=== PATIENT | male | born 1985 | race Caucasian/White ===

== ENCOUNTER → 2016-12-25 | Outpatient (CLI) | payer BC ==
[2016-12-25 12:20] LABS: BASOPHILS % (AUTO) 0 % (0-2); EOSINOPHILS % (AUTO) 1 % (0-4); LYMPHOCYTES # (AUTO) 1.5 X10^3; MEAN CORPUSCULAR HEMOGLOBIN 30.1 PG (26.0-34.0); MEAN CORPUSCULAR VOLUME 85 FL (80-100); MEAN PLATELET VOLUME 9.4 FL (6.0-9.5); MONOCYTES # (AUTO) 0.5 X10^3; MONOCYTES % (AUTO) 8 % (3-11); NEUTROPHILS # (AUTO) 4.3 X10^3; NEUTROPHILS % (AUTO) 68 % (51-67); PLATELET COUNT 259 10^3uL (150-450); WHITE BLOOD COUNT 6.32 10^3uL (4.0-11.0)
[2016-12-25 12:23] LABS: MEAN CORPUSCULAR HGB CONC 35.5 g/dL (31.0-37.0)
[2016-12-25 12:29] LABS: BILIRUBIN,URINE Negative (Negative); CLARITY,URINE Clear; COLOR,URINE Yellow; GLUCOSE, URINE (UA) Negative (Negative); LEUKOCYTE ESTERASE ,URINE Negative (Negative); UROBILINOGEN,URINE 0.2 mg/dL (0.2-1.0)
[2016-12-25 12:44] LABS: ALBUMIN 4.7 g/dL (3.4-5.0); ANION GAP 16.1 MEQ/L (3-15); CALCULATED IONIZED CALCIUM 3.9 mg/dL (3.8-4.6); TOTAL PROTEIN 7.6 g/dL (6.4-8.5)
[2016-12-25 13:01] LABS: ERYTHROCYTE SEDIMENTATION RT* 3 mm/hr (0-12)
== END ==
LOC: LAB 11:50
PROVIDERS: ATTEND Family Medicine
DX: M62.82 Rhabdomyolysis (principal)
CPT/HCPCS: 36415; 80053; 81003; 82550; 85025; 85652

== ENCOUNTER 2017-02-20 16:00 | Outpatient (RCR) | payer BC ==
--- NOTE | 2017-02-11 13:14 | PT/OT/ST INITIAL EVALUATION ---
Department of Health and Human Services Form Approved Health Care Financing Administration OMB No. [id number] PLAN OF CARE/ASSESSMENT FOR OUTPATIENT REHABILITATION (Complete for Initial Claims Only) 1. PATIENT'S NAME Mazin Wolff 2. ACC # [id number] 3. HICN NA 4. PROVIDER NO. NA 5. TYPE: PT 6. PRIOR HOSPITALIZATION NA 7. PRIMARY DX G54.1 lumbosacral plexus disorder and left hip pain. 8. SECONDARY DX Leg length discrepancy due to pelvic asymmetry, stiffness of the lumbar spine and weakness. 9. ONSET DATE 01/22/2017 10. REFERRAL DATE 01/31/2017 11. SOC. DATE 02/06/2017 12. TIME OF EVAL 4:00 p.m. to 4:58 p[address]YS[address]IAN Dr. Ino Mcdonough 13. CHARGES/UNITS PT evaluation low complexity 83649 Therapeutic exercise 07941, 2 units Manual therapy 86919, 1 unit 14. G CODES NA 15. PRIOR LEVEL OF FUNCTION; PERTINENT HISTORY (Prior therapy results, reason for referral.) S: Prior to therapy the patient consented to today's evaluation and treatment. The patient is a 31-year-old male referred to physical therapy by Dr. Mcdonough to address functional limitations secondary to lumbosacral plexus disorder and left hip pain. Current complaint/Mechanism of injury: The patient reports the pain began a couple of weeks ago on 01/22/2017 he was bending and turning and he had pain in his back, which has since stopped hurting him and now the pain is in his left hip. The patient reports that he has trouble with bending forward. Functional performance/Prior level of function: Prior to pain beginning on 01/22/2017, the patient reports that he frequently throws his back out, probably once a month, and he does stretches and works through it and is able to return to normal activities without any problems. This time, the pain has not resolved. The Lower Extremity Functional Scale rates the patient as a 51. The patient has difficulty with bending forward. 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 Therapy History: None. Pain level: The patient rates the current pain level as 6/10 and describes it as a sharp pain when moving, in his left anterior and posterior hip. Obstacles to delivery of care: None noted Aggravating factors: Includes sitting and lifting heavy objects. Relieving factors: Include standing and moving around. Diagnostic testing: None Past medical history: None. Past surgical history: Includes having a laceration with a nicked artery on his left arm approximately 5 years ago and breaking his left 5th finger, which required pins and then a hernia repair as a small child. Current medications: Advil and ibuprofen a couple times a day. The patient reports his doctor prescribed him a pain medication, antiinflammatory and muscle relaxer which he took for about a week and has not taken since. Leisure activities include: Mowing and working around his home. The patient has 4 children. Personal health rating: Listed as good. Patient's Goal: The patient's goal for physical therapy is to strengthen has back and his hip. 16. INITIAL ASSESSMENT/SAFETY PRECAUTIONS/MEDICAL COMPLICATIONS (Level of function at start of care. Be specific, use objective measures, list problems.) O: APPEARANCE, OBSERVATION AND GAIT: The patient attends physical therapy with the diagnosis of lumbosacral plexus disorder and left hip pain. The patient reports that he pulls his back and it hurts approximately once every couple of months. The patient reports that he had not had any bowel or bladder changes and no saddle anesthesia. The patient has no pain down into either lower extremity. The patient's injury began with back pain, which he states he has a home E-stim unit and he applies that to his back. At one time he applied it to his hip and his back pain went away, however, then the pain mostly located in his left hip and he states he feels tight. The patient has difficulty with active range of motion, especially into flexion. The patient describes at times having to use altered motions to get from a bent forward position to an upright position using aberrant movements. The patient's hamstrings bilaterally are extremely tight and are unable to fully extend either knee with a long arc quad. PALPATION: The patient was tender to palpate on the anterior ASIS on the left and the left PSIS. SPECIAL TESTS: Slump test bilaterally was positive for muscle tightness. The pain did not go away with relaxing stretch to the neural system. RANGE OF MOTION/FLEXIBILITY: Bilateral hamstring flexibility is significantly tight and unable to perform and long arc quad due to tightness. Lumbar active range of motion flexion 25% with aberrant movement returning to an upright posture. Extension 100%. Right side bending 85% with pull, left side bending 90%. Right rotation 80%, left rotation 80% and is sore. Hip active range of motion left and right flexion painful. Bilateral abduction within functional limits and bilateral extension within functional limits. STRENGTH: Manual muscle testing of the hips flexion left 4-/5 with pain, right 4-/5 with pain. Abduction bilateral 4-/5, extension bilateral 4-/5. Knee flexion left 4/5, right 4/5. Knee extension left and right did not perform manual resistance due to not being able to reach full extension with long arc quad. Upon observation the patient is a 3-/5 bilateral. Plantar flexion bilateral 4-/5, dorsiflexion bilateral 4-/5. TODAY'S TREATMENT: Today's treatment included the initial PT evaluation followed by manual therapy correcting left anterior versus right posterior innominate rotation, left inflare versus right outflare and the left sacrum was elevated. After correcting the left elevated sacrum it corrected leg length discrepancy. Therapeutic exercise and the patient was provided a home exercise program. 17. INITIAL POC: (Specify procedures, modalities, short and termite control service representative goals) A: The patient presents to physical therapy with the diagnosis of lumbosacral plexus disorders and left hip pain. The patient shows a leg length discrepancy due to sacral deviation and elevation with pelvic rotation, lumbar stiffness and weakness with altered motions moving into all planes of lumbar movement. The patient presented with a right posterior versus a left anterior rotated innominate, left inflare versus right outflare and an elevated left sacrum. With passive accessory motion in a side-lying position, the patient's lumbar extension was within functional limits. Flexion was significantly limited through all lumbar vertebrae. Left side bending and rotation was decreased as compared to the right side bending and rotation. The patient would benefit from physical therapy in order to restore proper mechanics and proper accessory motion of the lumbar vertebrae in order to perform lumbar range of motion, especially into flexion and returning to an upright position with minimal to no deviation in order to return to all his activities with lowered risk of reinjuring his back to strengthen core in order to maintain pelvic asymmetry. PROGNOSIS: The patient has a good prognosis for increased active range of motion with decreased pain with regular therapy attendance and compliance with a prescribed home exercise program. CONTRAINDICATIONS, PRECAUTIONS AND OBSTACLES TO DELIVERY OF CARE: No contraindications, precautions, or obstacles are noted at this time. INFORMED CONSENT: The prognosis and goals were discussed with the patient, as well as the expected outcome and possible risks. The patient agreed to undergo PT evaluation and further treatment. SHORT TERM GOALS: 1. The patient is to have a decreased in pain of the left hip to less than or equal to 1/10 in 4 weeks in order to be able to bend forward and lift without deviation. 2. The patient is to have an increase in manual muscle testing of bilateral hips and core to 4+/5 in 4 weeks in order to assure proper mechanics with lifting in order to decrease irritation to the low back and maintain proper alignment to reduce risk of reinjuring his back. 3. The patient is to have a increased in passive lumbar motion especially with left side bending and rotation, as well as flexion to 90% without pain to assure proper mechanics for active range of motion, especially bending forward and returning to upright position without deviation. 4. The patient is to be independent with a progressive home exercise program. P: Plan to treat this patient 2 times a week for 4 weeks to address functional limitations. Treatment to include modalities for pain and inflammation, manual therapy interventions, therapeutic exercise, active and passive range of motion, gait training, balance proprioceptive training, neural reeducation, and patient education and progressive home exercise program as tolerable. 18. FREQUENCY 2 times per week 19. DURATION 4 weeks 20. FUNCTIONAL LEVEL (End of claim period) 21. PHYSICIAN SIGNATURE ? ON FILE OR ENTER HERE: 22. DATE: I certify the need for these services furnished under this plan of care and if for partial hospitalization. 23. CERTIFICATION FROM THROUGH FORM [facility] [id number]
== END 2017-03-18 12:06 | disposition home or self-care (01) ==
LOC: PT 16:00
PROVIDERS: ATTEND Family Medicine
DX: G54.1 Lumbosacral plexus disorders (principal); M25.552 Pain in left hip; M53.86 Other specified dorsopathies, lumbar region